=== PATIENT | male | born 1960 | race Caucasian/White ===

== ENCOUNTER 2024-08-16 13:24 | Emergency (ER) | payer MEDICAID ==
[~2024-08-16] VITALS: Ht 182.9 cm; Wt 72.7 kg
[2024-08-16] MEDS ORDERED: SULF1TAB49 PO (15:47)
[2024-08-16 15:55] VITALS: BP 124/82; PULSE 76; RESP 16; TEMP 98.5; O2SAT 99
== END 2024-08-16 15:56 | disposition home or self-care (01) ==
LOC: ER 13:25
DX: H60.01 Abscess of right external ear (principal)
CPT/HCPCS: 99283

== ENCOUNTER 2025-04-18 16:40 | Emergency (ER) | payer MEDICAID ==
[~2025-04-18] VITALS: Ht 182.9 cm; Wt 72.7 kg
[2025-04-18 16:47] VITALS: TEMP 98.6
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
[2025-04-18] MEDS ORDERED: AMOX-580 PO (17:22)
[2025-04-18] MEDS: amox tr/potassium clavulanate 875/125mg TAB PO ONE (17:37)
[2025-04-18 17:41] VITALS: BP 193/123; PULSE 64; RESP 16; O2SAT 95
== END 2025-04-18 17:44 | disposition home or self-care (01) ==
LOC: ER 16:40
DX: Z02.89 Encounter for other administrative examinations (principal); Z88.8 Allergy status to other drugs, medicaments and biological substances; V43.52XA Car driver injured in collision with other type car in traffic accident, initial encounter; Y93.89 Activity, other specified; Y92.89 Other specified places as the place of occurrence of the external cause; Y99.8 Other external cause status
CPT/HCPCS: 99283; A6258